=== PATIENT | female | born 1990 | race American Indian/Alaskan Native ===

== ENCOUNTER 2017-03-08 18:01 | Emergency (ER) | payer OTHER, MEDICAID ==
[2017-03-08 18:18] VITALS: BP 124/79; PULSE 96; RESP 20; TEMP 97.8; O2SAT 99
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
== END 2017-03-08 19:08 | disposition home or self-care (01) ==
LOC: C.ER 18:01
DX: S39.012A Strain of muscle, fascia and tendon of lower back, initial encounter (principal); V49.9XXA Car occupant (driver) (passenger) injured in unspecified traffic accident, initial encounter

== ENCOUNTER 2017-11-25 20:43 | Emergency (ER) | payer MEDICAID, OTHER ==
[2017-11-25 21:06] VITALS: BP 121/85; PULSE 88; RESP 16; TEMP 98.1; O2SAT 98
--- NOTE | 2017-11-25 22:28 | C.PDOC ---
History Of Present Illness 27 year old female presents to the ER with a complaint of a sore throat that radiates to the left ear for the past 2 days, associated with subjective fever. Denies nausea, vomiting, or diarrhea. Chief Complaint (Nursing): ENT Problem History Per: Patient History/Exam Limitations: None Onset/Duration Of Symptoms: Days Current Symptoms Are (Timing): Still Present Quality (Mouth/Throat): Other (Sore throat) Symptoms Have Been: Continuous Anticoagulant/Antiplatlet Use?: No Past Medical History Reviewed: Historical Data, Nursing Documentation, Vital Signs Vital Signs: Last Vital Signs Temp 98.1 F 11/25/17 21:02 Pulse 88 11/25/17 21:02 Resp 16 11/25/17 21:02 BP 121/85 11/25/17 21:02 Pulse Ox 98 11/25/17 22:38 Surgical History: Family History: States: Unknown Family Hx - Social History Hx Alcohol Use: No Hx Substance Use: No Review Of Systems Constitutional: Positive for: Fever (Subjective) ENT: Positive for: Ear Pain (Left), Throat Pain Respiratory: Negative for: Cough Gastrointestinal: Negative for: Nausea, Vomiting, Diarrhea Physical Exam - Physical Exam Appears: Non-toxic, No Acute Distress, Other (Normal voice) Skin: Normal Color, Warm, Dry Head: Atraumatic, Normacephalic Eye(s): bilateral: Normal Inspection Ear(s): Bilateral: Normal Nose: Normal Oral Mucosa: Moist, No Drooling Throat: Erythema (Pharyngeal), Other (Patent airway) Neck: Normal, Supple Chest: Symmetrical, No Tenderness Cardiovascular: Rhythm Regular Respiratory: Normal Breath Sounds, No Rales, No Rhonchi, No Wheezing Neurological/Psych: Oriented x3, Normal Speech ED Course And Treatment O2 Sat by Pulse Oximetry: 98 (Room air) Pulse Ox Interpretation: Normal Progress Note: Toradol administered, patient started on amoxicillin. On reevaluation, patient reports improvement of symptoms, will discharge with Rx and instructions to follow up with PMD. Disposition - Disposition Disposition: HOME/ ROUTINE Disposition Time: 22:25 Condition: STABLE Additional Instructions: Follow up with your PMD within 1-2 days. Return to ED if feel worse. Prescriptions: Amoxicillin [Amoxil 500 mg Cap] 500 mg PO Q8 #30 cap Ibuprofen [Motrin Tab] 600 mg PO Q8 #30 tab Instructions: Sore Throat in Adults Forms: [facility] ([place]), Work Excuse - Clinical Impression Clinical Impression: Pharyngitis - PA / [employer]CH[employer]ISER / Resident Statement MD/DO has reviewed & agrees with the documentation as recorded. - Scribe Statement The provider has reviewed the documentation as recorded by the Scribscar [place] All medical record entries made by the Ellynibscar were at my direction and personally dictated by me. I have reviewed the chart and agree that the record accurately reflects my personal performance of the history, physical exam, medical decision making, and the department course for this patient. I have also personally directed, reviewed, and agree with the discharge instructions and disposition.
== END 2017-11-25 22:38 | disposition home or self-care (01) ==
LOC: C.ER 20:43
DX: J02.9 Acute pharyngitis, unspecified (principal)
CPT/HCPCS: 96372; 99283; J1885